=== PATIENT | female | born 1980 | race African-American/Black ===

== ENCOUNTER 2020-04-17 22:16 | Inpatient (IN) | payer OTHER ==
--- NOTE | 2020-04-17 22:49 | PDOC.FPRHP ---
- History of Present Illness Chief Complaint: fever and chills History of Present Illness: Pt is a 40 yo female with PMH of migraines who presents with fever and chills for 1 day. 5 days ago she started having ORELLANA and chest pain. Fever, chills, sore throat, congestion, cough and myalgias started yesterday. Also c/o pain in low back and lower abdomen, nausea, and decreased urination. ORELLANA has gotten worse, described as frontal, constant, no change in vision. She started a new job at [employer] about a month ago. denies emesis, diarrhea, anorexia, dysuria. ED Course: Diphenhydramine, Vancomycin, Rocephin, Zofran, Ketorolac, Acetaminophen Flu swab negative - Allergies/Adverse Reactions Allergies Allergy/AdvReac Type Severity Reaction Status Date / Time vancomycin Allergy Verified 04/17/20 23:09 - Home Medications Medication Instructions Recorded Confirmed Type No Known 04/17/20 04/17/20 History - History PMHx: migraines PSHx: none FHx: mother- DM, HLD grandmother- DM, HLD, cancer Social: no T/A/D Allergies: vancomycin- redness and itching Home meds: none - Review of Systems General: reports: fever/chills, fatigue Eyes: denies: vision changes ENT: denies: nasal congestion Respiratory: reports: cough. denies: congestion Cardiovascular: denies: chest pain, edema Gastrointestinal: reports: nausea, abdominal pain. denies: vomiting, diarrhea Genitourinary: denies: dysuria, polyuria Skin: denies: rashes, lesions Musculoskeletal: denies: swelling, arthritis/arthralgias Neurological: denies: numbness, syncope Psychological: denies: anxiety, depression - Vital signs BP: 94/72 HR: 89 RR: 18 Tmax: 103.2F (oral) Pox: 96% on RA Wt: 61kg - Physical Exam Constitutional: NAD, awake, alert and oriented -Constitutional: mildly lethargic HEENT: normocephalic and atraumatic, EOMI, grossly normal vision, grossly normal hearing Neck: FROM, trachea midline -Chest: TTP over sternum Heart: RRR, normal S1/S2, no murmurs/rubs/gallops, pulses present Lungs: CTAB, no respiratory distress, good air movement, no wheezing, no retractions Abdomen: soft, bowel sounds present, no masses/distention -Abdomen: tender to palpation over suprapubic and RLQ, no mcburney point, no rebound; Left CVA tenderness Musculoskeletal: normal structure, normal tone, ROM grossly normal Neurological: no focal deficit Skin: no rash/lesions Psychiatric: normal mood and affect, intact recent and remote memory FMR H&P: Results - Labs Result Diagrams: 04/18/20 01:52 FMR H&P: A/P - Plan #Sepsis 2/2 possible COVID vs UTI vs pyelonephritis vs appendicitis - Sx: cough, fever, myalgia, sore throat - PE: CVA tenderness, CTAB, suprapubic tenderness, RLQ tenderness - recently started working at [employer] - UA leukocytes, no bacteria or nitrites. - pending COVID swab, LDH, procal, ferritin, CRP; droplet and contact precautions - CXR: normal - pending: Urine and blood culture - CT abdomen ordered due to CVA tenderness and RLQ abd pain - Abx: rocephin for UTI - Tylenol PRN for fever Anemia - Hgb 8.7, Likely iron deficiency anemia - Iron studies, Vit B12, folate and peripheral smear pending Migraine headache - s/p benadryl, zofran, toradol - home med: excedrin migraine, will continue - benadryl prn Code: FULL Diet: Regular IVF: LR 100ml/hr Dispo: admit to medical, obs, continue to monitor, LOS <48 hrs FMR H&P: Upper Level - Plan Date/Time: 04/17/20 3173 IQian MD, have evaluated this patient and agree with findings/plan as outlined by international trade manager resident. Pertinent changes/additions are listed here. This is a 40yo F with PMH of migraine headaches who presents as a direct admit transfer from [place] [facility] for sepsis from UTI and possible COVID. She reports that she had some chest pain that started Monday along with a headache. She reports chest pain is in the middle of her chest and worse with palpation. This was accompanied with a headache. The headache has been intermittent since Monday. Is in the center and sides of her head and throbs. It got worse yesterday and has not improved. She usually takes ibuprofen or excedrin migraine for her headaches. She also endorses nausea, fever/chills, sore throat , dry cough that started yesterday. She has no sick contacts. She started working at [employer] about a month ago. In the ER the patient was given benadryl 12.5mg IV, vancomycin 1250mg IV, ceftriaxone 2g IV, NS 30ml/kg IV x2, nadja 4mg IV, ketoralac 30mg IV, tylenol 1000mg oral. VS initially were 94/72, 89, 18, 100% RA, 102.7F (oral). Pertinent labs: flu (-). CXR nml. On exam here, the patient states she is feeling very tired. Still endorsing headache. PE: General: NAD, resting in bed HEENT: NCAT, EOMI, PERRL, trachea midline Cardio: RRR, no murmurs, rubs, gallops Resp: CTAB, no wheezes Abd: soft, TTP in RLQ, suprapubic, no McBurneys point tenderness, Left CVA tenderness MSK: FROM, no swelling in LE Psych: axox3 Plan: Sepsis 2/2 possible COVID vs UTI Patient with symptoms c/w COVID including sore throat, cough, congestion. Started working at [employer] recently. CXR nml. Patient with decreased urine output, suprapubic pain. UA + leukocytes, no bacteria or nitrites. Febrile , , tachy on presentation. Differential includes: COVID, UTI w/ pyelonephritis, appendicitis. - Will get additional COVID labs including ferritin, LDH, procal, and CRP. Satting well on RA. - COVID swab pending. Precautions. - Blood/urine cx pending - Will get CT abd to r/o hydronephrosis and appendicitis due to CVA tenderness on L and RLQ pain - Continue on rocephin for UTI. Will discontinue vanc due to rxn and low likelihood of MRSA infxn. Will change abx if needed. - Tylenol PRN for fever Anemia Hgb 8.7, MCV 70. Likely iron deficiency anemia. - Iron studies, Vit B12 and folate pending - Plt 573, will get peripheral smear Migraine headache s/p benadryl, zofran, toradol. - Will continue to monitor. Benadryl PRN. Will give excedrin migraine. Dispo: admit to medical, obs Code: FULL Diet: Reg Case to be discussed with Dr. Jessica Addendum - Attending - Attending Attestation Date/Time: 04/18/20 4234 I personally evaluated the patient and discussed the management with Dr. Carbajal. I agree with the History, Examination, Assessment and Plan documented above with any addition or exceptions noted below. The patient was transferred from [place] for sepsis 2/2 possible covid and UTI/pyelo. She was febrile overnight. Blood pressure is low normal. CVA tenderness is improved. Pt will be treated with IV antibiotics, cultures pending, covid test pending, Getting CT abd/pelvis to further look at kidneys. IV fluids.
[2020-04-17] MEDS ORDERED: Acetaminophen 650 MG Suppository PR PRN (22:50)
[2020-04-17] MEDS ORDERED: Ondansetron PF 4 MG/2 ML Vial IVP PRN (22:50)
[2020-04-17] MEDS ORDERED: Ondansetron ODT 4 MG TAB PO PRN (22:50)
[2020-04-17 23:21] VITALS: BMI 23.9
[2020-04-18 00:39] LABS: Iron 13 ug/dL (50-170)
[2020-04-18 00:40] LABS: Iron Binding Capacity, Total 378 mcg/dL (265-497)
[2020-04-18] MEDS: Acetaminophen 325 MG TAB PO PRN ×3 (01:05→21:29)
[2020-04-18 02:36] LABS: Anisocytosis MODERATE=16-30 cells (100X) (0-5/hpf); Band 5 % (5-11); Hemoglobin 8.1 g/dL (12.0-16.0); Hypochromia SLIGHT = 6-15 cells (100X) (0-5/hpf); Lymphocytes 12 % (21-51); MDiff Complete? YES; Mean Corpuscular HGB CONC 30.1 g/dL (32.0-36.0); Mean Corpuscular Hemoglobin 21.5 pg (27.0-31.0); Mean Corpuscular Volume 71.6 fL (78.0-98.0); Mean Platelet Volume 8.8 fL (7.4-10.4); Microcytosis SLIGHT = 6-15 cells (100X) (0-5/hpf); Monocytes 8 % (0-10); Neutrophil 75 % (42-75); Platelet Count 433 thou/uL (130-400); RBC Distribution Width 20.4 % (11.5-14.5); Red Blood Cell (RBC) Count 3.76 mill/uL (4.20-5.40); Tear Drops SLIGHT = 2-5 cells (100X) (0-1/hpf); White Blood Cell (WBC) Count 7.9 thou/uL (4.8-10.8)
--- NOTE | 2020-04-18 06:04 | PDOC.FM ---
- Subjective Subjective: Patient was resting in bed at the time of evaluation. She continued to endorse intermittent fevers and generalized malaise. Upon further questioning, patient also stated that she had pleuritic-type chest pain, worse when she coughed and non-radiating. Per the Resident Night Team, the patient was also endorsing suprapubic tenderness and low-back pain during admission. However, when questioned about this, the patient stated that she actually had neck pain, and denied low-back pain, flank pain or continued supra-pubic pain. - Objective Vital Signs & Weight: Vital Signs (12 hours) Temp Pulse Resp BP BP Pulse Ox 04/18/20 00:40 102.1 F H 99 18 103/59 L 100 04/17/20 22:45 99.6 F 100 20 111/62 100 Weight Weight 61.235 kg Result Diagrams: 04/18/20 09:58 Phys Exam - Physical Examination Constitutional: NAD HEENT: moist MMs, sclera anicteric, oral pharynx no lesions Neck: no nodes, supple, full ROM Respiratory: no wheezing, no rales, no rhonchi, clear to auscultation bilateral Cardiovascular: RRR, no significant murmur, no rub Gastrointestinal: soft, non-tender, no distention, positive bowel sounds Musculoskeletal: no edema, pulses present No CVA Tenderness Neurological: non-focal, moves all 4 limbs Lymphatic: no nodes Psychiatric: normal affect Dx/Plan (1) SIRS (systemic inflammatory response syndrome) Code(s): R65.10 - SIRS OF NON-INFECTIOUS ORIGIN W/O ACUTE ORGAN DYSFUNCTION Status: Acute (2) Migraine Code(s): G43.909 - MIGRAINE, UNSP, NOT INTRACTABLE, WITHOUT STATUS MIGRAINOSUS Status: Acute (3) Thrombocytopenia Code(s): D69.6 - THROMBOCYTOPENIA, UNSPECIFIED Status: Acute - Plan Plan: Patient is a 40 y/o female who presents for evaluation of signs and symptoms consistent with COVID-19 infection. #Sepsis 2/2 possible COVID-19 Infection vs UTI/Pylenephritis -Respiratory symptoms include sore throat, cough, congestion, with recent exposures to COVID-19 at [employer] -Urinary symptoms include decreased urinary output w/ suprapubic pain, also demonstrated CVA TTP per Resident Night Team -Patient was febrile and tachycardia on admission -WBC: 8 -UA: +Leukocytes, w/o Bacteria or Nitrites -CXR: NAF -CT ABD/Pelvis: No evidence for Appendicitis or Pyelonephritis - follow-up with outpatient MRI for possible Uterine Fibroid -Flu A/B: Negative -COVID Swab: Pending -CRP: 3.54 -Ferritin: 6.89 -LDH: 208 -Pending - Procal, Ferritin, LDH -BCX/UCx: Pending -s/p Vancomycin and Ceftriaxone - will continue Ceftriaxone as there is low suspicion for MRSA infection at this time -Tylenol PRN for fever -Will monitor O2Sats closely #Microcytic Anemia -Hgb: 8.7 / MCV: 70 -Peripheral Smear: Pending -Serum Fe: 13 -Ferritin: 6.89 -Vitamin B12: 392 -Folate: 9.7 -Will begin Fe supplementation during hospitalization #Migraine ORELLANA -s/p Benadryl, Zofran, Toradol - will continue Zofran PRN and add Tylenol PRN -Will continue to monitor closely - consider augmenting with PRN Excedrin and Diphenhydramine if ORELLANA fails to resolve PCP: CC Code: Full Diet: HH w/ Low Sodium Activity: Ad alberto VTE PPx: GI PPx: Dispo: Patient is currently stable and admitted to the Medical Floor for ongoing evaluation of Sepsis with possible respiratory or source. Will continue ABx and PRN medications as per above. Will need to follow-up on labs and imaging performed at outside facility. Expected LOS > 48H. Addendum - Attending - Attending Attestation Date/Time: 04/18/20 7823 I personally evaluated the patient and discussed the management with Dr. Carbajal. I agree with the History, Examination, Assessment and Plan documented above with any addition or exceptions noted below. Pt admitted for sepsis 2/2 possible covid and possibly UTI. Covid test is still pending. Cultures are pending. Pt will continue on Rocephin. CT abd read somewhat suspicious for fat stranding around appendix on the virtual read but not the overread. Pt was not tender this morning on palpation of the abdomen. Will ask radiology to look at the images again. Pt meets inpt criteria with sepsis, 2-midnight stay planned.
--- NOTE | 2020-04-18 08:32 | CT ---
PRELIMINARY REPORT/[facility]/EMERGENCY AFTER HOURS PROCEDURE EXAM: CT Abdomen and Pelvis with Intravenous Contrast CLINICAL HISTORY: LOW BACK AND LOWER ABD PAIN. NAUSEA AND REDUCED URINATION TECHNIQUE: Axial computed tomography images of the abdomen and pelvis with intravenous contrast. CONTRAST: With; ISOVUE 370,100mL COMPARISON: None provided. FINDINGS: LUNG BASES: No basilar airspace consolidation or pleural effusion. LIVER: Unremarkable. GALLBLADDER AND BILE DUCTS: Unremarkable. No calcified stone. No ductal dilation. PANCREAS: Unremarkable. SPLEEN: Unremarkable. ADRENAL GLANDS: Unremarkable. KIDNEYS, URETERS, AND BLADDER: Unremarkable. No hydronephrosis or nephrolithiasis. No ureteral or bladder calculi. STOMACH AND BOWEL: No obstruction. Mild wall thickening of the proximal colon with mucosal enhancement. No CT evidence of colitis or acute diverticulitis. APPENDIX: No CT evidence for appendicitis. PERITONEUM: No free fluid. No free air. LYMPH NODES: No lymphadenopathy. REPRODUCTIVE: Unremarkable as visualized. VASCULATURE: No aortic aneurysm. BONES: No fracture or suspicious osseous abnormality. ABDOMINAL WALL AND SOFT TISSUES: Unremarkable. IMPRESSION: 1. Mild wall thickening of the proximal colon with mucosal enhancement may be infectious or inflammat ory. No evidence of obstruction. 2. Normal appearance of the appendix. No nephroureterolithiasis or obstructive uropathy. ELECTRONICALLY SIGNED BY: Rodrick Kidd DO Apr 18, 2020 3:52:48 AM CDT This report is intended for review by the ordering physician only, in accordance of law. If you recei ve this report in error, please call [facility] at [phone]. FINAL REPORT EXAM: CT ABDOMEN AND PELVIS HISTORY: Evaluate for appendicitis and/or pyelonephritis COMPARISON: None. Procedure: Multiple contiguous axial images were obtained and a CT of the abdomen and pelvis with IV contrast. C oronal reformats were performed. FINDINGS: Lower Chest: within normal limits. Vessels: Normal caliber aorta. Heart: Normal heart size. Abdomen: Portal vein:Patent Gallbladder: No calcified gallstones. Normal caliber wall. Liver: within normal limits. Pancreas: within normal limits. Spleen: within normal limits. Adrenals: within normal limits. Kidneys: Symmetric enhancement. No obstructive uropathy. Peritoneum: No ascites or free air, no fluid collection. Bowel: Limited evaluation due to the lack of oral contrast administration. No evidence of bowel obstr uction. Ileocecal junction is unremarkable. Normal caliber appendix. There does appear to be mild enhancement involving the appendix mucosa with minimal adjacent fat stranding. However, there does ap pear to be air attenuation within the normal caliber appendix. There is bowel wall thickening involving the cecum and ascending colon. No evidence of obstruction. Mesentery and Retroperitoneum: No enlarged mesenteric or retroperitoneal lymph nodes. Abdominal Wall: within normal limits. Pelvis: Reproductive Organs: There is an exophytic hypodensity emanating from the posterior right aspect of t he uterus. Etiology of this lesion is uncertain. The possibility of exophytic uterine leiomyoma is raised. This finding was not mentioned in the initial report by [facility]. Pelvis: No mass, lymphadenopathy, free air. There does appear to be a small amount of free fluid in t he pelvis. Bladder: within normal limits. Bones: within normal limits. IMPRESSION: 1. This report is in minor disagreement with initial report by [facility]. There may be an exop hytic uterine leiomyoma emanating from the posterior right aspect of the uterus. Due to the location, ultrasound may be difficult. Consider nonemergent pelvic MRI. 2. There are mucosal changes involving the right hemicolon which may be on the basis of an infectious or inflammatory process. 3. No evidence of appendicitis or pyelonephritis. CODE T Transcribed Date/Time: 04/18/2020 10:18 AM
[2020-04-18 10:16] LABS: #Lymphocytes 1.1 thou/uL (1.20-3.40); #Monocytes 0.5 thou/uL (0.11-0.59); #Neutrophils 5.8 thou/uL (1.40-6.50); %Basophils 0.1 % (0.0-1.0); %Eosinophils 0.1 % (0.0-10.0); %Lymphocytes 14.5 % (21.0-51.0); %Monocytes 6.2 % (0.0-10.0); %Neutrophils 79.2 % (42.0-75.0); Hemoglobin 8.1 g/dL (12.0-16.0); Mean Corpuscular HGB CONC 30.2 g/dL (32.0-36.0); Mean Corpuscular Hemoglobin 21.6 pg (27.0-31.0); Mean Corpuscular Volume 71.6 fL (78.0-98.0); Platelet Count 448 thou/uL (130-400); Red Blood Cell (RBC) Count 3.73 mill/uL (4.20-5.40); White Blood Cell (WBC) Count 7.4 thou/uL (4.8-10.8)
[2020-04-18] MEDS ORDERED: Iopamidol-370 76% 500 ML 1 ML ONE (10:49)
[2020-04-18] MEDS: Ferrous Sulfate 325 MG TAB PO SCH (10:50)
[2020-04-18] MEDS: diphenhydrAMINE 25 MG CAP PO PRN (14:58)
[2020-04-18] MEDS: Lactated Ringer's 1,000 ML IV SCH ×3 (14:58→21:28)
[2020-04-18] MEDS: Aspirin/APAP/Caffeine Tab (Excedrin Migraine) PO PRN (14:59)
[2020-04-18] MEDS: cefTRIAXone\\ROCEPHIN 2 GM in Sodium Chloride 0.9% 100 ML IVPB SCH (18:38)
--- NOTE | 2020-04-19 05:48 | PDOC.FM ---
- Subjective Subjective: Patient was resting comfortably in bed at the time of evaluation. She denied any acute overnight events, to include chest pain, cough or sore throat, but did state that she had 2 episodes of watery diarrhea. Patient stated that she was overall feeling better. - Objective Vital Signs & Weight: Weight Weight 61.235 kg I&O: 04/17/20 04/18/20 04/19/20 06:59 06:59 06:59 Intake Total 1750 1800 Output Total 50 Balance 1700 1800 Result Diagrams: 04/18/20 09:58 Phys Exam - Physical Examination Constitutional: NAD HEENT: moist MMs, sclera anicteric, oral pharynx no lesions Neck: supple, full ROM Respiratory: no wheezing, no rales, no rhonchi, clear to auscultation bilateral Cardiovascular: RRR, no significant murmur, no rub Gastrointestinal: soft, no distention, positive bowel sounds Mild suprapubic tenderness Musculoskeletal: no edema, pulses present Neurological: non-focal, moves all 4 limbs Psychiatric: normal affect Skin: no rash Dx/Plan (1) SIRS (systemic inflammatory response syndrome) Code(s): R65.10 - SIRS OF NON-INFECTIOUS ORIGIN W/O ACUTE ORGAN DYSFUNCTION Status: Acute (2) Migraine Code(s): G43.909 - MIGRAINE, UNSP, NOT INTRACTABLE, WITHOUT STATUS MIGRAINOSUS Status: Acute (3) Thrombocytopenia Code(s): D69.6 - THROMBOCYTOPENIA, UNSPECIFIED Status: Acute - Plan Plan: Patient is a 40 y/o female who presents for evaluation of 5 days of fevers, chills, cough, sore throat, back pain and urgency. #Sepsis 2/2 Upper Respiratory or Source -Respiratory symptoms include sore throat, cough, congestion, with recent exposures to COVID-19 at [employer] - patient denies worsening symptoms since admission and actually states that her symptoms have all but resolved -Urinary symptoms included decreased urinary output w/ suprapubic pain, also demonstrated CVA TTP per Resident Night Team - patient denies continued urgency , dysuria, hematuria or vaginal discharge -Patient was febrile and tachycardia on admission - no fevers in past 18H -WBC: 8 - will continue to trend -UA: +Leukocytes, w/o Bacteria or Nitrites -B-HCG: Negative -CXR: NAF -CT ABD/Pelvis: No evidence for Appendicitis or Pyelonephritis - follow-up with outpatient MRI for possible Uterine Fibroid -Flu A/B: Negative -COVID-19: Negative -Procal: 0.11 -CRP: 3.54 -Ferritin: 6.89 -LDH: 208 -Ferritin: 6.89 -BCX/UCx: Pending -s/p Vancomycin and Ceftriaxone - will continue Ceftriaxone as there is low suspicion for MRSA infection at this time -Tylenol PRN for fever -Will monitor O2Sats closely #Microcytic Anemia -Hgb: 8.7 / MCV: 70 on admission -Peripheral Smear: Pending -Serum Fe: 13 -Ferritin: 6.89 -Vitamin B12: 392 -Folate: 9.7 -Will begin Fe supplementation during hospitalization #Migraine ORELLANA -s/p Benadryl, Zofran, Toradol - will continue Zofran PRN and add Tylenol PRN -Will continue to monitor closely - consider augmenting with PRN Excedrin and Diphenhydramine if ORELLANA fails to resolve PCP: CC Code: Full Diet: HH w/ Low Sodium Activity: Ad alberto VTE PPx: None - MAXIMINO Score: 0 GI PPx: None Dispo: Patient is currently stable and admitted to the Medical Floor for ongoing evaluation of SIRS with possible respiratory or source, although source seems most likely at this time. Will continue ABx and PRN medications as per above. Will need to follow-up on labs and imaging performed at outside facility. Expected LOS < 48H. Addendum - Attending - Attending Attestation Date/Time: 04/19/20 5322 I personally evaluated the patient and discussed the management with Dr. Carbajal. I agree with the History, Examination, Assessment and Plan documented above with any addition or exceptions noted below. The patient is feeling much better. Covid negative. Pt afebrile. Will continue on antibiotics for uti. Awaiting urine cultures. Blood cultures negative. Anticipate discharge tomorrow when cultures return. Pt has been started on iron for iron deficiency anemia.
[2020-04-19] MEDS: Lactated Ringer's 1,000 ML IV SCH ×2 (06:12→14:39)
[2020-04-19] MEDS: Ferrous Sulfate 325 MG TAB PO SCH (10:32)
[2020-04-19] MEDS: cefTRIAXone\\ROCEPHIN 2 GM in Sodium Chloride 0.9% 100 ML IVPB SCH (18:10)
[2020-04-19] MEDS: Aspirin/APAP/Caffeine Tab (Excedrin Migraine) PO PRN (22:26)
[2020-04-19] MEDS: diphenhydrAMINE 25 MG CAP PO PRN (22:33)
[2020-04-20] MEDS: Lactated Ringer's 1,000 ML IV SCH ×2 (00:48→06:43)
--- NOTE | 2020-04-20 05:49 | PDOC.FM ---
- Subjective Subjective: Patient was resting comfortably in bed, watching TV, at the time of evaluation. She denied any acute overnight events, but did endorse mild, intermittent ABD pain and 1-2 episodes of non-bloody loose stools. Patient continued to deny fevers, chills, and upper respiratory symptoms. - Objective Vital Signs & Weight: Vital Signs (12 hours) Temp Pulse Resp BP Pulse Ox 04/19/20 20:00 98.2 F 74 18 102/66 100 Weight Weight 61.235 kg I&O: 04/18/20 04/19/20 04/20/20 06:59 06:59 06:59 Intake Total 1750 3600 1800 Output Total 50 Balance 1700 3600 1800 Result Diagrams: 04/18/20 09:58 Phys Exam - Physical Examination Constitutional: NAD HEENT: moist MMs, sclera anicteric, oral pharynx no lesions Neck: no nodes, supple, full ROM Respiratory: no wheezing, no rales, no rhonchi, clear to auscultation bilateral Cardiovascular: RRR, no significant murmur, no rub Gastrointestinal: soft, non-tender, no distention, positive bowel sounds Musculoskeletal: no edema, pulses present Neurological: non-focal, moves all 4 limbs Lymphatic: no nodes Psychiatric: normal affect Skin: no rash Dx/Plan (1) SIRS (systemic inflammatory response syndrome) Code(s): R65.10 - SIRS OF NON-INFECTIOUS ORIGIN W/O ACUTE ORGAN DYSFUNCTION Status: Acute (2) Migraine Code(s): G43.909 - MIGRAINE, UNSP, NOT INTRACTABLE, WITHOUT STATUS MIGRAINOSUS Status: Acute (3) Thrombocytopenia Code(s): D69.6 - THROMBOCYTOPENIA, UNSPECIFIED Status: Acute - Plan Plan: Patient is a 40 y/o female who presents for evaluation of 5 days of fevers, chills, cough, sore throat, back pain and urgency. #Sepsis 2/2 UTI -Patient initially complained of respiratory symptoms that included sore throat , cough, congestion, with recent exposures to COVID-19(+) individuals at [employer] - patient denies worsening symptoms since admission and actually states that her symptoms have all but resolved -Patient also endorsed urinary symptoms that included decreased urinary output , urgency and suprapubic pain, and also demonstrated CVA TTP on admission per Resident Night Team - patient denies continued urgency, dysuria, hematuria or vaginal discharge -Patient was febrile and tachycardia on admission - no fevers in past 36H -WBC: 8 - stable -UA: +Leukocytes, w/o Bacteria or Nitrites -UCx: No Growth at 24H -BCx: No Growth at 48H -B-HCG: Negative -CXR: NAF -CT ABD/Pelvis: No evidence for Appendicitis or Pyelonephritis - follow-up with outpatient MRI for possible Uterine Fibroid -Flu A/B: Negative -COVID-19: Negative -Procal: 0.11 -CRP: 3.54 -Ferritin: 6.89 -LDH: 208 -Ferritin: 6.89 -s/p Vancomycin and Ceftriaxone - will transition to PO Cephalosporin for presume infection and low suspicion of MRSA infection at this time -Tylenol PRN for fever -Will monitor O2Sats closely #Microcytic Anemia -Likely 2/2 to iron deficiency -Hgb: 8.7 / MCV: 70 on admission -Peripheral Smear: Hypochromia, Microcytosis, Anisocytosis -Serum Fe: 13 -Ferritin: 6.89 -Vitamin B12: 392 -Folate: 9.7 -Will continue Fe supplementation following DC and encourage outpatient follow- up #Migraine ORELLANA -s/p Benadryl, Zofran, Toradol - will continue Zofran PRN and add Tylenol PRN -Will continue to monitor closely - consider augmenting with PRN Excedrin and Diphenhydramine if ORELLANA fails to resolve PCP: CC Code: Full Diet: HH w/ Low Sodium Activity: Ad alberto VTE PPx: None - MAXIMINO Score: 0 GI PPx: None Dispo: Patient is currently stable and admitted to the Medical Floor for ongoing evaluation of Sepsis likely 2/2 to UTI - respiratory etiology seems extremely unlikely at this time based on complete resolution of respiratory symptoms and negative COVID-19 testing. Will plan for DC with short course of ABx as per above and encourage outpatient follow-up of Iron Deficiency Anemia and Uterine Fibroid. Expected LOS < 24H. Addendum - Attending - Attending Attestation Date/Time: 04/20/20 1141 I personally evaluated the patient and discussed the management with Dr. Carbajal. I agree with the History, Examination, Assessment and Plan documented above with any addition or exceptions noted below. Patient feeling well. She has no evidence of UTI. Stable for discharge.
[2020-04-20 06:36] VITALS: TEMP 98.5
[2020-04-20 07:21] VITALS: BP 99/65
[2020-04-20] MEDS: Ferrous Sulfate 325 MG TAB PO SCH (08:57)
--- NOTE | 2020-04-21 04:31 | DIS ---
DATE OF ADMISSION: 04/18/2020 DATE OF DISCHARGE: 04/20/2020 RESIDENT PHYSICIAN: Dr. Marcio Carbajal ATTENDING PHYSICIAN: Dr. Russ Quinones CONSULTS: None. PROCEDURES: None. PRIMARY DIAGNOSIS: Sepsis, suspected origin. SECONDARY DIAGNOSES: Thrombocytopenia, microcytic anemia, migraine headache. DISCHARGE MEDICATIONS: 1. Keflex 500 mg q.6 hours for 2 days. 2. Ferrous sulfate 325 mg p.o. daily. DISCONTINUED MEDICATIONS: None. HISTORY OF PRESENT ILLNESS AND HOSPITAL COURSE: Patient is a 40-year-old female with an unremarkable past medical history who presented to the ED as a transfer from an outside facility with presumed sepsis secondary to possible COVID infection. Patient states that she has had fever, cough, chills, general malaise and sore throat, as well as urinary urgency for approximately 5 days. Of note, the patient is an employee at [employer], where there been multiple COVID-19 outbreaks. Patient was found to be febrile and tachycardic on admission and was subsequently transferred to [facility] in [place], [place] for further workup and evaluation. Patient was given diphenhydramine, Zofran, and ketorolac injection and started on an antibiotic regimen consisting of vancomycin and ceftriaxone. Patient was swabbed for the flu, which was negative. Initial urinalysis conducted at the outside facility was verbally reported to include severe signs of infection, however, upon review the patient's urine was read to only show small amounts of leukocyte esterase and 11 to 20 urine wbc's. Urine culture was negative at 24 hours at the time of discharge. Additionally, patient's lab values were found not to show evidence of leukocytosis and patient's blood cultures were negative at 48 hours at the time of discharge. Chest x-ray was performed which did not show any acute cardiopulmonary processes. On physical exam by the admitting Resident Night Team, patient endorsed mild CVA tenderness on the left side as well as suprapubic tenderness and diffuse abdominal tenderness. As such a CT abdomen and pelvis was ordered to evaluate for pyelonephritis, appendicitis and diverticulitis - all of which was read as negative. However, a small uterine fibroid was noted per the radiology report, and the patient was encouraged to follow up as an outpatient for further evaluation with MRI. Patient was subsequently stabilized and transferred to the medical floor where she was transitioned to an antibiotic regimen consisting of ceftriaxone 2 g daily. During the first 24 hours the patient demonstrated multiple elevated temperatures, ranging from approximately 100 degrees Fahrenheit to as high as 102.1 degrees Fahrenheit. However, she was afebrile for greater than 36 hours prior to discharge. Patient was able to maintain p.o. intake well and aside from 1 to 2 loose bowel movements had no other complaint. Patient's subjective fevers, chills, and myalgias resolved and on multiple evaluations, the patient continued to deny any respiratory symptoms to include cough, sore throat, or difficulty breathing. Due to the patient's apparent improvement, the patient was prepped for discharge to continue oral antibiotics with Keflex 500 mg p.o. q.6 hours for 2 days to include a total of 5 days of antibiotic therapy for presumed infection, although signs and laboratory analysis at this time are relatively unremarkable. Prior to discharge, patient's vital signs were recorded as temperature 98.5, pulse 76 beats per minute, respirations 18 per minute, oxygen saturation 98% on room air. Blood pressure 99/65. Laboratory analysis revealed a white blood cell count of 7.4, hemoglobin of 8.1, hematocrit 26.7, platelet count 448. Peripheral smear revealed hypochromia , microcytosis, and anisocytosis. Chem panel revealed a sodium of 136, potassium 4.1, chloride 107, carbon dioxide 18, BUN 8, creatinine 1, glucose 102, lactic acid 1. Iron 13, TIBC 378, percent saturation 3, ferritin 6.89, total bilirubin 0.5, AST 16, ALT 8, alkaline phosphatase 45, lactate dehydrogenase 208. Troponin less than 0.01. C-reactive protein 3.54. Vitamin B12 392, folate 9.7, procalcitonin 0.11. Serum test was negative. Serology indicated that the patient was COVID-19 negative. DISPOSITION: Stable. DISCHARGE INSTRUCTIONS: 1. Location: Home. 2. Diet: Heart healthy diet. 3. Activity: No restrictions. FOLLOWUP: The patient was encouraged to follow up with her primary care provider in approximately one week to discuss her most recent hospitalization. Additionally, the patient was encouraged to discuss apparent iron deficiency anemia as well as presumed uterine and suggested follow-up MRI. Job ID: [id number] [facility]
== END 2020-04-20 14:20 | disposition home or self-care (01) | DRG 872 ==
LOC: INTOOBSV 22:16 → T4-B 22:16 → OBSVTOIN 04-18 10:03
PROVIDERS: ADMIT Family Medicine; ATTEND Family Medicine
DX: A41.9 Sepsis, unspecified organism (principal); N39.0 Urinary tract infection, site not specified; G43.909 Migraine, unspecified, not intractable, without status migrainosus; D25.9 Leiomyoma of uterus, unspecified; Z20.828 Contact with and (suspected) exposure to other viral communicable diseases; D69.6 Thrombocytopenia, unspecified; D50.0 Iron deficiency anemia secondary to blood loss (chronic); Z88.1 Allergy status to other antibiotic agents
CPT/HCPCS: 36415; 36416; 74177; 82607; 82728; 82746; 83540; 83550; 83615; 84145; 84484; 85060; 86140; 87086; 96360; 96361; G0378; J0696; J3490; Q0163; Q9967